=== PATIENT | female | born 1995 | race Caucasian/White ===

== ENCOUNTER 2018-05-11 10:09 | Emergency (ER) | payer OTHER | END 2018-05-11 11:45 | disposition home or self-care (01) | LOC: FTE 10:09 | DX: H61.23 Impacted cerumen, bilateral (principal) | CPT/HCPCS: 69209; 99282-25 ==

== ENCOUNTER 2018-08-22 12:44 | Emergency (ER) | payer OTHER | END 2018-08-22 15:43 | disposition home or self-care (01) | LOC: FTE 12:44 | DX: S33.9XXA Sprain of unspecified parts of lumbar spine and pelvis, initial encounter (principal); X50.0XXA Overexertion from strenuous movement or load, initial encounter; Y92.9 Unspecified place or not applicable | CPT/HCPCS: 99283; Z7502 ==

== ENCOUNTER 2018-08-28 08:20 | Emergency (ER) | payer OTHER | END 2018-08-28 09:37 | disposition home or self-care (01) | LOC: FTE 08:20 | DX: L03.115 Cellulitis of right lower limb (principal); L08.9 Local infection of the skin and subcutaneous tissue, unspecified | CPT/HCPCS: 99283; Z7502 ==

== ENCOUNTER 2018-10-22 09:05 | Emergency (ER) | payer OTHER | END 2018-10-22 09:54 | disposition home or self-care (01) | LOC: FTE 09:05 | DX: K14.0 Glossitis (principal); R40.2412 Glasgow coma scale score 13-15, at arrival to emergency department | CPT/HCPCS: 99283; Z7502 ==